=== PATIENT | male | born 1970 | race Caucasian/White ===

== ENCOUNTER 2019-02-02 09:57 | Emergency (ER) | payer SELFPAY ==
[~2019-02-02] VITALS: Ht 180.3 cm; Wt 90.0 kg
--- NOTE | 2019-02-02 10:20 | NUR ---
PT WITH MULTIPLE COMPLAINTS. PT STATES PAIN IN CHEST STARTING YESTERDAY, 04/13 [place]. PT STATES NEUROPATHY IN LEGS, C/O LOWER BACK PAIN. PT NOT ANSWERING QUESTIONS APPROPRIATELY, KEEPS CHANGING SUBJECT, ASKING IF MICHAELA HAS VISITED THE [place] [facility] WHEN HE WAS ASKED ABOUT PAIN. "I LIKE THE NAME JESSICA, MY BROTHER IS JESSICA LETS CALL JESSICA" PT THEN CALLS BROTHER ON SPEAKER PHONE.
[2019-02-02] MEDS ORDERED: HYDROcodone/APAP 5/325 TABLET PO ONE (10:30)
[2019-02-02] MEDS ORDERED: HYDROcodone/APAP 5/325 TABLET ONE (10:38)
[2019-02-02 10:42] LABS: BASOPHILS # (AUTO) 0.08 x10^3/uL (0-0.1); BASOPHILS % (AUTO) 1 % (0-1); EOSINOPHILS # (AUTO) 0.22 x10^3/uL (0-0.4); EOSINOPHILS % (AUTO) 3 % (1-7); LYMPHOCYTES # (AUTO) 2.07 x10^3/uL (1-3.4); LYMPHOCYTES % (AUTO) 28 % (22-44); MD NO; MEAN CORPUSCULAR HEMOGLOBIN 30.4 pg (27.5-34.5); MEAN CORPUSCULAR HGB CONC 33.6 g/dL (33.2-36.2); MEAN CORPUSCULAR VOLUME 90.5 fL (81-97); MEAN PLATELET VOLUME 7.6 fL (7.4-10.4); MONOCYTES % (AUTO) 6 % (2-9); NEUTROPHILS # (AUTO) 4.55 x10^3/uL (1.8-6.8); NEUTROPHILS % (AUTO) 62 % (42-75); PLATELET COUNT 538 x10^3/uL (130-400); RED BLOOD COUNT 3.93 x10^6/uL (4.38-5.82)
[2019-02-02 10:54] LABS: ALBUMIN 3.7 g/dL (3.4-5.0); ANION GAP 9 mmol/L (5-15); CALCIUM 8.1 mg/dL (8.5-10.1); CHLORIDE 111 mmol/L (98-107); CREATININE 0.94 mg/dL (0.7-1.3)
[2019-02-02 10:57] LABS: TROPONIN I < 0.015 ng/mL (0.000-0.045)
--- NOTE | 2019-02-02 11:10 | NUR ---
PT REPORT FROM VITA CELIS. PT CARE TO BE ASSUMED.
--- NOTE | 2019-02-02 11:10 | NUR ---
REPORT TO NILDA GORMAN
--- NOTE | 2019-02-02 11:36 | NUR ---
[place] ABOUT [employer]CIALS, FRIENDS & FAMILY. STATES HE'S HERE FOR CP, FELL DOWN IN [employer]. LT SIDED CP "GOING ON FOR 7-8 MONTHS". NO MEDS TAKEN FOR PAIN. TRYING TO GET BACK ON KLONOPIN & AMBIEN - LAST DOSES "ABOUT 5 YRS AGO". HX: ANXIETY, INSOMNIA, ALCOHOLIC. ETOH "2 DAYS AGO" - 3-4 SCREW DRIVERS. RESP UNLABORED, SPEECH CLEAR BUT RAMBLING.
--- NOTE | 2019-02-02 12:40 | NUR ---
TO CT PER ADRIENNE
[2019-02-02] MEDS ORDERED: OMNIPAQUE 350 MG/ML, 100ML BOTTLE ONE (12:57)
[2019-02-02] MEDS ORDERED: LORazepam 1MG TABLET PO ONE (13:00)
[2019-02-02] MEDS ORDERED: LORazepam 1MG TABLET ONE (13:44)
[2019-02-02 13:59] VITALS: BP 125/94
== END 2019-02-02 14:02 | disposition home or self-care (01) ==
LOC: ED 13:09
DX: R07.89 Other chest pain (principal); F10.10 Alcohol abuse, uncomplicated; I25.2 Old myocardial infarction; I10 Essential (primary) hypertension; G62.9 Polyneuropathy, unspecified; Y90.9 Presence of alcohol in blood, level not specified
CPT/HCPCS: 36415; 71045; 71275; 80048; 82040; 83880; 84484; 85025; 85379; 93005; 93971; 99284; Q9967

== ENCOUNTER 2019-02-03 07:44 | Emergency (ER) | payer SELFPAY ==
--- NOTE | 2019-02-03 07:47 | NUR ---
PT BIB [facility], C/O CHEST PAIN FOR 7 MONTHS THAT IS NOT IMPROVING. PT HAS HAD 324MG ASPRIN EN ROUTE. PT REPORTS HAVING 7 SCREW DRIVERS OVER THE COURSE OF THE NIGHT LAST ONE AT AROUND [id number]. PT ALSO STATES THAT HE HAS GLASS IN HIS FEET FROM A BROKEN GLASS LAST NIGHT.
[2019-02-03 07:53] VITALS: BP 136/95
[2019-02-03 08:30] LABS: TROPONIN I < 0.015 ng/mL (0.000-0.045)
--- NOTE | 2019-02-03 10:42 | NUR ---
Patient given discharge instructions and they have confirmed that they understand the instructions. Patient ambulatory with steady gait. Taxi voucher given along with information for [facility] for rehab. Comminity resources were given for alcohol withdrawl.
== END 2019-02-03 10:43 | disposition home or self-care (01) ==
LOC: ED 08:25
DX: R07.89 Other chest pain (principal); F10.120 Alcohol abuse with intoxication, uncomplicated; M79.672 Pain in left foot; M79.671 Pain in right foot; I10 Essential (primary) hypertension; I25.2 Old myocardial infarction; Y90.9 Presence of alcohol in blood, level not specified
CPT/HCPCS: 36415; 80307; 84484; 93005; 99284

== ENCOUNTER 2020-02-17 07:51 | Emergency (ER) | payer SELFPAY ==
[~2020-02-17] VITALS: Ht 180.3 cm; Wt 86.3 kg
[2020-02-17 07:53] VITALS: BP 143/97
[2020-02-17] MEDS ORDERED: LORazepam 1MG TABLET PO ONE (08:30)
[2020-02-17] MEDS ORDERED: LORazepam 1MG TABLET ONE (08:35)
[2020-02-17 08:52] LABS: BASOPHILS # (AUTO) 0.04 x10^3/uL (0-0.1); BASOPHILS % (AUTO) 1 % (0-1); EOSINOPHILS # (AUTO) 0.07 x10^3/uL (0-0.4); EOSINOPHILS % (AUTO) 1 % (1-7); LYMPHOCYTES # (AUTO) 0.97 x10^3/uL (1-3.4); LYMPHOCYTES % (AUTO) 18 % (22-44); MD NO; MEAN CORPUSCULAR HEMOGLOBIN 30.3 pg (27.5-34.5); MEAN CORPUSCULAR HGB CONC 32.9 g/dL (33.2-36.2); MEAN CORPUSCULAR VOLUME 92.1 fL (81-97); MEAN PLATELET VOLUME 7.7 fL (7.4-10.4); MONOCYTES # (AUTO) 0.55 x10^3/uL (0.2-0.8); MONOCYTES % (AUTO) 10 % (2-9); NEUTROPHILS # (AUTO) 3.64 x10^3/uL (1.8-6.8); NEUTROPHILS % (AUTO) 69 % (42-75); PLATELET COUNT 139 x10^3/uL (130-400); RED BLOOD COUNT 4.96 x10^6/uL (4.38-5.82); RED CELL DISTRIBUTION WIDTH 14.7 % (9.4-14.8)
--- NOTE | 2020-02-17 08:59 | NUR ---
BIB EMS FROM [facility] ETOH/WITHDRAWALS. PT IN BED WITH CONT SPO2, BP Q 30 MIN. PT WANT STAFF TO CALL HIS FRIEND TO TAKE HIM HOME. HIS PHONE IS BROKEN AND HE DOES NOT KNOW THE NUMBER TO CALL. PT TELLING STAFF THAT WE ARE NOT HELPING BECAUSE WE CANT CALL HIS FRIEND THAT HE DOES NOT KNOW THE NUMBER TOO. PT REPORTS THAT HE IS GOING TO NEED 4 MG OF ATIVAN. NOTIFIED
[2020-02-17 09:01] LABS: ALANINE AMINOTRANSFERASE 74 U/L (12-78); ALBUMIN 4.1 g/dL (3.4-5.0); ANION GAP 9 mmol/L (5-15); CALCIUM 8.4 mg/dL (8.5-10.1); CHLORIDE 104 mmol/L (98-107)
[2020-02-17 09:16] LABS: ALKALINE PHOSPHATASE 75 U/L (45-117); BILIRUBIN,TOTAL 0.4 mg/dL (0.2-1.0); CREATININE 0.93 mg/dL (0.7-1.3); TOTAL PROTEIN 7.9 g/dL (6.4-8.2)
--- NOTE | 2020-02-17 09:50 | NUR ---
DC INSTRUCTIONS REVIEWED.
== END 2020-02-17 09:52 | disposition home or self-care (01) ==
LOC: ED 09:03
DX: F10.120 Alcohol abuse with intoxication, uncomplicated (principal); G89.29 Other chronic pain; R10.30 Lower abdominal pain, unspecified; R42 Dizziness and giddiness; Z72.9 Problem related to lifestyle, unspecified; Y90.9 Presence of alcohol in blood, level not specified
CPT/HCPCS: 36415; 80053; 80307; 83735; 85025; 99283

== ENCOUNTER 2020-02-27 01:47 | Emergency (ER) | payer SELFPAY ==
[~2020-02-27] VITALS: Ht 180.3 cm; Wt 97.3 kg
--- NOTE | 2020-02-27 01:58 | NUR ---
[facility]: EKG DONE IN TRIAGE.
[2020-02-27] MEDS ORDERED: ONDANSETRON 2MG/ML, 2ML IVPush ONE (02:30)
[2020-02-27] MEDS ORDERED: MORPHINE SULFATE 4 MG/ML, 1ML IVPush ONE (02:30)
[2020-02-27] MEDS ORDERED: ONDANSETRON 2MG/ML, 2ML ONE (02:32)
[2020-02-27] MEDS ORDERED: MORPHINE SULFATE 4 MG/ML, 1ML ONE (02:33)
[2020-02-27 02:40] LABS: BASOPHILS # (AUTO) 0.07 x10^3/uL (0-0.1); BASOPHILS % (AUTO) 1 % (0-1); EOSINOPHILS # (AUTO) 0.07 x10^3/uL (0-0.4); EOSINOPHILS % (AUTO) 1 % (1-7); LYMPHOCYTES % (AUTO) 17 % (22-44); MD NO; MEAN CORPUSCULAR HEMOGLOBIN 31.1 pg (27.5-34.5); MEAN CORPUSCULAR HGB CONC 33.9 g/dL (33.2-36.2); MEAN CORPUSCULAR VOLUME 91.6 fL (81-97); MEAN PLATELET VOLUME 8.9 fL (7.4-10.4); MONOCYTES # (AUTO) 1.44 x10^3/uL (0.2-0.8); MONOCYTES % (AUTO) 16 % (2-9); NEUTROPHILS # (AUTO) 6.01 x10^3/uL (1.8-6.8); NEUTROPHILS % (AUTO) 66 % (42-75); PLATELET COUNT 272 x10^3/uL (130-400); RED BLOOD COUNT 4.34 x10^6/uL (4.38-5.82); RED CELL DISTRIBUTION WIDTH 14.6 % (9.4-14.8)
--- NOTE | 2020-02-27 02:41 | NUR ---
PT TO IMAGING.
[2020-02-27 02:50] LABS: ALBUMIN 3.4 g/dL (3.4-5.0); ANION GAP 10 mmol/L (5-15); CALCIUM 8.7 mg/dL (8.5-10.1); CHLORIDE 108 mmol/L (98-107); CREATININE 1.08 mg/dL (0.7-1.3)
[2020-02-27 02:54] LABS: TROPONIN I 0.029 ng/mL (0.000-0.045)
--- NOTE | 2020-02-27 03:14 | NUR ---
PT SLEEPING, RESPIRATIONS EVEN AND UNLABORED. NO SIGNS OF DISTRESS.
[2020-02-27 03:45] VITALS: BP 102/62
== END 2020-02-27 04:16 | disposition home or self-care (01) ==
LOC: ED 03:08
DX: F10.20 Alcohol dependence, uncomplicated (principal); R07.89 Other chest pain; R51 Headache; R11.0 Nausea; I49.1 Atrial premature depolarization; I10 Essential (primary) hypertension; I25.2 Old myocardial infarction; F17.210 Nicotine dependence, cigarettes, uncomplicated; Y90.0 Blood alcohol level of less than 20 mg/100 ml
CPT/HCPCS: 36415; 71046; 80048; 82040; 84484; 85025; 93005; 99285; 99406